=== PATIENT | female | born 1950 | race Caucasian/White ===

== ENCOUNTER 2020-02-26 02:15 | Emergency (ER) | payer MEDICARE, OTHER ==
[~2020-02-26] VITALS: Ht 160 cm; Wt 56.8 kg
--- NOTE | 2020-02-26 03:01 | NUR ---
PT BIB EMS. PT STATES SHE WAS DRIVING TO BANK BECAUSE SHE THOUGHT IT WAS 2 IN THE AFTERNOON AND BECAUSE THE BANK WAS CLOSED SHE CRASHED INTO THE BANK DOORS MULTIPLE TIMES TO ATTEMPT TO GET IN TO GET HER MONEY, TO MOVE TO [place], TO LIVE WITH DAUGHTER. [employer] ATTEMPTED TO CALL MOTHER WITH NO RESPONSE. PT;'S STORY IN NOT CONSISTANT, AT FIRST STATED GOING TO [facility] AFTER BANK THEN SAID GOING TO [facility] AFTERWARDS AND IS JHAVING A HARD TIME ANSWERING ALL OF THE ERP'S QUESTIONS. IV PLACED, LABS DRAWN, UA COLLECTED
[2020-02-26 03:09] LABS: BASOPHILS % (AUTO) 1 % (0-1); EOSINOPHILS % (AUTO) 1 % (1-7); LYMPHOCYTES % (AUTO) 29 % (22-44); MEAN CORPUSCULAR HEMOGLOBIN 33.2 pg (27.0-34.8); MEAN CORPUSCULAR HGB CONC 32.9 g/dL (32.4-35.8); MEAN PLATELET VOLUME 7.6 fL (7.4-10.4); MONOCYTES % (AUTO) 6 % (2-9); NEUTROPHILS % (AUTO) 63 % (42-75); PLATELET COUNT 269 x10^3/uL (130-400); RED BLOOD COUNT 3.27 x10^6/uL (3.82-5.3); RED CELL DISTRIBUTION WIDTH 14.3 % (9.6-15.2)
--- NOTE | 2020-02-26 03:12 | NUR ---
PT GIVEN SNACKS AND WATER, OK PER MD
[2020-02-26 03:16] LABS: ALANINE AMINOTRANSFERASE 42 U/L (12-78); ANION GAP 7 mmol/L (5-15); CHLORIDE 114 mmol/L (98-107); CREATININE 1.15 mg/dL (0.55-1.02)
[2020-02-26 03:17] LABS: SALICYLATE LEVEL < 1.7 mg/dL (2.8-20.0)
[2020-02-26 03:27] LABS: ALKALINE PHOSPHATASE 68 U/L (45-117); BILIRUBIN,TOTAL 0.5 mg/dL (0.2-1.0); TOTAL PROTEIN 7.2 g/dL (6.4-8.2)
[2020-02-26 03:45] LABS: MICROSCOPIC AUTO
[2020-02-26 03:52] LABS: MD SCAN
[2020-02-26 03:54] LABS: AMPHETAMINE SCREEN, URINE Negative (Negative); BARBITURATE SCREEN, URINE Negative (Negative); BENZODIAZEPINE SCREEN, URINE Negative (Negative); CANNABINOID SCREEN, URINE Negative (Negative); COCAINE SCREEN, URINE Negative (Negative); METHADONE SCREEN, URINE Negative (Negative); OPIATE SCREEN, URINE Negative (Negative)
--- NOTE | 2020-02-26 04:41 | NUR ---
TELEPSYCH SET UP IN PT'S ROOM, AWAITING CALL. PT STATES SHE FEELS "GOOD" AND HAS NO NEEDS AT THIS TIME
--- NOTE | 2020-02-26 05:22 | NUR ---
PT RESTING IN [facility], GIVEN REMOTE TO WATCH TV, AWAITING TELEPSYCH EVAL
--- NOTE | 2020-02-26 06:16 | NUR ---
TELE PSYCH SPEAKING TO PT, STATES HE WILL PLACE PT ON HOLD.
--- NOTE | 2020-02-26 06:34 | NUR ---
PT HAD ONE BELONGING BAG PLACED IN LOCKER, AND ROOM SECURED WELL
--- NOTE | 2020-02-26 06:37 | NUR ---
PER PT OK TO CALL DAUGHTER TO GIVE INFORMATION ABOUT STAY. ATTEMPT X 1. UNABLE TO LEAVE MESSAGE, PHONE STATED "CALL BACK LATER"
--- NOTE | 2020-02-26 06:56 | NUR ---
REPORT GIVEN TO YUMI AMADOR
--- NOTE | 2020-02-26 06:58 | NUR ---
BEDSIDE REPORT RECEIVED FROM YUMI ALFREDO FOR TRANSFER OF PATIENT CARE.
--- NOTE | 2020-02-26 07:42 | NUR ---
THROUGHPUT RN::U TO [facility] FOR POSSIBLE ADMISSION
[2020-02-26 09:17] VITALS: BP 147/68
--- NOTE | 2020-02-26 09:17 | NUR ---
BREAKFAST TRAY PROVIDED, PATIENT RESTING IN GURNEY WATCHING TV, SITTER AT DOORWAY, NO SIGNS OF ACUTE DISTRESS.
--- NOTE | 2020-02-26 09:58 | NUR ---
1ST ATTEMPT TO CALL REPORT.
--- NOTE | 2020-02-26 10:28 | NUR ---
REPORT CALLED TO YUMI LUTZ ON U FOR TRANSFER OF PATIENT CARE.
--- NOTE | 2020-02-26 10:38 | NUR ---
IV D/C'D WITH TIP INTACT PER YUMI LUTZ REQUEST.
--- NOTE | 2020-02-26 11:06 | NUR ---
PATIENT TAKEN TO U IN STABLE CONDITION VIA WHEELCHAIR BY IV TECHNICIAN. ALL PATIENT BELONGINGS TAKEN UP WITH PATIENT.
[2020-02-27] MEDS ORDERED: CLON1TAB23 PO (12:19)
[2020-02-27] MEDS ORDERED: SERT100T32 PO (12:19)
[2020-02-27] MEDS ORDERED: PANT40TA6 PO (12:21)
[2020-02-27] MEDS ORDERED: ATOR-2 PO (12:22)
[2020-02-27] MEDS ORDERED: LAMO25TA5 PO (12:24)
[2020-02-27] MEDS ORDERED: CARB100T4 PO (12:24)
== END 2020-02-26 11:07 ==
LOC: ED 06:27
DX: R41.82 Altered mental status, unspecified (principal); Z20.818 Contact with and (suspected) exposure to other bacterial communicable diseases; Z90.10 Acquired absence of unspecified breast and nipple; Z86.39 Personal history of other endocrine, nutritional and metabolic disease
CPT/HCPCS: 36415; 70450; 80053; 80307; 81001; 84439; 84443; 85025; 87086; 87635; 99285

== ENCOUNTER 2020-05-13 00:58 | Emergency (ER) | payer OTHER ==
[~2020-05-13] VITALS: Ht 160 cm; Wt 53.3 kg
[~2020-05-13 00:58] MED LIST: ATOR-2 PO; ATOR20TA37 PO; CARB100T4 PO; CARB200T2 PO; CLON1TAB11 PO; CLON1TAB23 PO; DONE5TAB52 PO; LAMO25TA5 PO; LEVO88TA2 PO; LOSA25TA25 PO; PANT40TA6 PO; QUET100T PO; QUET25TA7 PO; SERT100T32 PO
--- NOTE | 2020-05-13 01:15 | NUR ---
Pt explaining to nurse about "the bed bug pandemic"- pointing to and showing this RN what she thinks are bed bugs she keeps finding. No actual bed bugs seen by this RN.
[2020-05-13] MEDS ORDERED: DIPHENHYDRAMINE 50 MG/ML, 1ML ONE (01:25)
[2020-05-13] MEDS ORDERED: SERTRALINE 50MG TABLET ONE (01:26)
[2020-05-13] MEDS ORDERED: SERTRALINE 100MG TABLET PO ONE (01:30)
[2020-05-13] MEDS ORDERED: DIPHENHYDRAMINE 50 MG/ML, 1ML IM ONE (01:30)
[2020-05-13 01:31] VITALS: BP 122/58
--- NOTE | 2020-05-13 01:32 | NUR ---
Benadryl and sertraline administered.
--- NOTE | 2020-05-13 01:40 | NUR ---
Provided pt warm blanket, turned lights down per request. Pt cooperative, calm. Politely asked for blanket.
--- NOTE | 2020-05-13 01:47 | NUR ---
Report to YUMI VU.
--- NOTE | 2020-05-13 01:50 | NUR ---
Report received from YUMI Dennison. This RN to assume care. Patient resting in [facility] with no complaints. Respirations even and unlabored.
--- NOTE | 2020-05-13 02:55 | NUR ---
Patient up to BR.
== END 2020-05-13 04:19 | disposition home or self-care (01) ==
LOC: ED 02:03
DX: F41.1 Generalized anxiety disorder (principal); F22 Delusional disorders; Z86.39 Personal history of other endocrine, nutritional and metabolic disease; Z90.10 Acquired absence of unspecified breast and nipple
CPT/HCPCS: 96372; 99283; J1200

== ENCOUNTER 2020-06-30 12:45 | Emergency (ER) | payer OTHER ==
[~2020-06-30] VITALS: Ht 160 cm; Wt 50.0 kg
[2020-06-30] MEDS ORDERED: DIPHENHYDRAMINE 50 MG/ML, 1ML IM ONE (13:30)
[2020-06-30] MEDS ORDERED: DIPHENHYDRAMINE 50 MG/ML, 1ML ONE (13:49)
[2020-06-30 17:25] VITALS: BP 121/66
--- NOTE | 2020-06-30 17:25 | NUR ---
PT REC'VD DISCHARGE INSTRUCTIONS AND EDUCATION. PT HAD NO QUESTIONS. PT GIVEN TAXI VOUCHER.
== END 2020-06-30 18:23 | disposition home or self-care (01) ==
LOC: ED 14:13
DX: F41.1 Generalized anxiety disorder (principal); B88.8 Other specified infestations
CPT/HCPCS: 96372; 99285; J1200